=== PATIENT | male | born 1970 ===

== ENCOUNTER → 2020-12-10 13:00 | Outpatient (CLI) | payer OTHER, SELFPAY ==
[2020-12-10 21:14] LABS: COVID19 - ORCAS (NP or Nasal) Negative (Negative)
== END ==
PROVIDERS: PCP Family Medicine; Visit Provider Physician Assistant Medical
DX: Z01.818 Encounter for other preprocedural examination (principal); Z20.822 Contact with and (suspected) exposure to COVID-19
CPT/HCPCS: U0003